=== PATIENT | female | born 1995 | race Caucasian/White ===

== ENCOUNTER 2017-05-03 18:18 | Emergency (ER) | payer OTHER ==
[~2017-05-03] VITALS: Ht 175.3 cm; Wt 59.0 kg
[~2017-05-03 18:18] MED LIST: SPRINTEC1 EACH PO
[2017-05-03] MEDS ORDERED: ZYRTEC10 M5 PO (18:44)
[2017-05-03] MEDS ORDERED: PREDNISONE 20 M20 MG PO (19:25)
[2017-05-03] MEDS ORDERED: EPINEPHRIN0.3 MG/0.1 IM (19:25)
[2017-05-03 19:30] VITALS: BP 132/76
== END 2017-05-03 19:30 | disposition home or self-care (01) ==
LOC: ER 18:18
DX: T78.1XXA Other adverse food reactions, not elsewhere classified, initial encounter (principal); Z91.010 Allergy to peanuts; Z91.018 Allergy to other foods; X58.XXXA Exposure to other specified factors, initial encounter

== ENCOUNTER → 2020-01-19 | Outpatient (CLI) | payer OTHER ==
[~2020-01-19] MED LIST changes: +EPINEPHRIN0.3 MG/0.1 IM; +PREDNISONE 20 M20 MG PO; +ZYRTEC10 M5 PO
== END ==
LOC: ULTRA 08:31
PROVIDERS: ATTEND Family Medicine
DX: R19.7 Diarrhea, unspecified (principal); R11.0 Nausea